=== PATIENT | female | born 1990 | race Caucasian/White ===

== ENCOUNTER 2024-11-14 11:33 | Emergency (ER) | payer BC, OTHER ==
[~2024-11-14] VITALS: Ht 170.2 cm; Wt 82.1 kg
[2024-11-14] MEDS ORDERED: IPRATROPIUM BROMIDE 0.5 MG/2.5 ML NEBU ONE (11:48)
[2024-11-14] MEDS ORDERED: ALBUTEROL SULFATE 2.5 MG/3 ML NEBU ONE (11:48)
[2024-11-14 11:50] VITALS: O2SAT 99
[2024-11-14] MEDS: ALBUTEROL SULFATE 2.5 MG/3 ML NEBU NEB ONE (11:50)
[2024-11-14] MEDS: IPRATROPIUM BROMIDE 0.5 MG/2.5 ML NEBU NEB ONE (11:50)
[2024-11-14] MEDS ORDERED: methylPREDNISolone SOD SUCC 125 MG/2 ML VIAL ONE (12:06)
[2024-11-14] MEDS: methylPREDNISolone SOD SUCC 125 MG/2 ML VIAL IV ONE (12:10)
[2024-11-14 12:11] LABS: BASOPHILS % (AUTO) 0.6 % (0.0-2.0); EOSINOPHILS % (AUTO) 0.1 % (0.0-7.0); HEMATOCRIT 42.1 % (31.2-41.9); HEMOGLOBIN 14.9 g/dL (10.9-14.3); LYMPHOCYTES # (AUTO) 0.4 K/uL (0.8-4.8); LYMPHOCYTES % (AUTO) 6.1 % (20.5-51.5); MEAN CORPUSCULAR HEMOGLOBIN 31.5 uug (24.7-32.8); MEAN CORPUSCULAR HGB CONC 35 g/dL (32.3-35.6); MEAN CORPUSCULAR VOLUME 89.1 fL (75.5-95.3); MONOCYTES # (AUTO) 0.2 K/uL (0.1-1.30); MONOCYTES % (AUTO) 3.5 % (0.0-11.0); NEUTROPHILS # (AUTO) 6.4 K/uL (1.8-8.9); NEUTROPHILS % (AUTO) 89.7 % (38.5-71.5); PLATELET COUNT (AUTO) 320 K/uL (179-408); RED BLOOD CELL COUNT(AUTO) 4.73 MIL/uL (3.63-4.92); RED CELL DISTRIBUTION WIDTH 12.9 % (12.3-17.7); WHITE BLOOD COUNT (AUTO) 7.1 K/uL (3.8-11.8)
[2024-11-14 12:12] LABS: DIFFERENTIAL COMMENT 1
[2024-11-14 12:19] LABS: CALCIUM 9.6 mg/dL (8.5-10.1); CREATININE 0.7 mg/dL (0.6-1.3); POTASSIUM 3.9 mmol/L (3.5-5.1)
[2024-11-14 12:25] LABS: ALBUMIN 3.9 g/dL (3.4-5.0); BILIRUBIN,DIRECT 0.1 mg/dL (0.0-0.2); BILIRUBIN,TOTAL 0.5 mg/dL (0.2-1.0); TOTAL PROTEIN, SERUM 8.1 g/dL (6.4-8.2)
[2024-11-14 12:50] VITALS: O2SAT 100
[2024-11-14] MEDS ORDERED: ALBU2.5V38 NEB (13:28)
[2024-11-14] MEDS ORDERED: BUDE10.2 INH (13:34)
[2024-11-14 14:07] VITALS: BP 122/69; TEMP 98; O2SAT 100
== END 2024-11-14 14:08 | disposition home or self-care (01) ==
LOC: ER 11:33
DX: J45.901 Unspecified asthma with (acute) exacerbation (principal); F31.9 Bipolar disorder, unspecified; R10.2 Pelvic and perineal pain
CPT/HCPCS: 99285; 96374; 71045; 80076; 80048; 85025; 84702; 36415; 94644; J2919; 94760; A4606; A4663; J3590